=== PATIENT | female | born 1955 | race Hispanic/Latino ===

== ENCOUNTER 2017-01-03 19:13 | Emergency (ER) | payer OTHER ==
[~2017-01-03] VITALS: Ht 149.9 cm; Wt 59.0 kg
[~2017-01-03 19:13] MED LIST: INDOMETHACIN75 M1 PO
[2017-01-03 19:43] VITALS: BP 121/71
--- NOTE | 2017-01-03 20:21 | RADIOLOGY REPORT ---
EXAMINATION: XR ANKLE, RIGHT CLINICAL INFORMATION: Right ankle pain and swelling following a fall. Evaluate for a fracture. COMPARISON: No relevant prior studies are available for comparison. TECHNIQUE: AP, lateral, and mortise views of the right ankle. FINDINGS: No fracture or dislocation. The ankle mortise is well-maintained. Mild degenerative spurring at the dorsal aspect of the talonavicular joint. No osseous erosion. Small tibiotalar joint effusion. No abnormal soft tissue calcification. Prominent lateral soft tissue swelling. IMPRESSION: 1. Prominent lateral soft tissue swelling without an associated fracture. 2. Small tibiotalar joint effusion. 3. Mild degenerative spurring at the dorsal aspect of the talonavicular joint.
--- NOTE | 2017-01-03 20:37 | ED UPPER/LOWER EXTREMITY COMPL ---
History of Present Illness General Chief Complaint: Foot or Ankle Injury Stated Complaint: RT ANKLE PAIN Source: patient Exam Limitations: no limitations Vital Signs & Intake/Output Vital Signs & Intake/Output Vital Signs Date Time Temp Pulse Resp B/P B/P Pulse O2 O2 Flow FiO2 Mean Ox Delivery Rate 01/03 1943 98.6 69 16 121/71 98 Room Air ED Intake and Output 01/04 0000 01/03 1200 Intake Total 120 Output Total Balance 120 Intake, Oral 120 Patient 130 lb Weight Allergies Coded Allergies: Penicillins (Intermediate, RASH 01/03/17) Reconcile Medications Indomethacin 75 MG CAPSULE.ER 1 CAP PO BID PRN PAIN/INFLAMMATION Meloxicam (Mobic) 15 MG TABLET 1 TAB PO DAILY PRN PAIN Triage Note: MECHANICAL FALL DOWN TWO STEPS AT DINNER. TOOK IBUPROFEN 800MG AT 2PM WITH MINIMAL RELIEF. REPORTS PAIN 10/10 WITH MOVEMENT, UNABLE TO BEAR WEIGHT. SIGNIFICANT SWELLING NOTED. +CMS TO AFFECTED TOES. PAIN EQUAL TO MEDIAL AND LATERAL ANKLE. DENIES PAIN TO FOOT. MEDICATED WITH TYLENOL IN TRIAGE Triage Nurses Notes Reviewed? yes Onset: Abrupt Duration: constant Timing: single episode today Severity: severe Severity Numbers: 7 Method of Injury: fall HPI: Patient is a 61-year-old female who presents emergency room stating that while ambulating down steps after eating at a restaurant she lost her balance and twisted her right ankle resulting acute onset of pain and swelling localized to the right ankle. Patient denies any knee pain or foot pain. Ibuprofen was administered prior to being evaluated. Denies any significant history of sprain or fractures to the right ankle. Patient denies any other pain (ANTOINETTE MALDONADO) Past History Travel History Traveled to [place] past 21 day No Medical History Any Pertinent Medical History? see below for history Neurological: NONE EENT: NONE Cardiovascular: NONE Respiratory: asthma, pneumonia Gastrointestinal: NONE Hepatic: NONE Renal: NONE Musculoskeletal: NONE Psychiatric: NONE Endocrine: hypothyroidism Other Medical Hx: Epidural abscess Surgical History Surgical History: LUMBAR EPIDURAL ABSCESS EVACUATION Psychosocial History What is your primary language French Tobacco Use: Refused to answer Family History Hx Contributory? No (ANTOINETTE MALDONADO) Review of Systems Review of Systems Constitutional: Reports: no symptoms. EENTM: Reports: no symptoms. Respiratory: Reports: no symptoms. Cardiovascular: Reports: no symptoms. Gastrointestinal/Abdominal: Reports: no symptoms. Genitourinary: Reports: no symptoms. Musculoskeletal: Reports: see HPI, joint pain, joint swelling. Skin: Reports: no symptoms. Neurological/Psychological: Reports: no symptoms. Hematologic/Endocrine: Reports: no symptoms. Immunological: Reports: no symptoms. All Other Systems: Reviewed and Negative (ANTOINETTE MALDONADO) Physical Exam Physical Exam General Appearance: no apparent distress, alert, comfortable Neurologic/Tendon: normal sensation, normal motor functions, normal tendon functions, responds to pain, no evidence tendon injury, no pulse deficit Skin: intact, normal color, warm/dry Comments: Well-developed well-nourished no apparent distress. HEENT: Atraumatic, extraocular motion intact Neck: Supple, no lymphadenopathy Back: Nontender Respiratory: No respiratory distress Extremities: Right knee nontender full active range of motion normal inspection Right ankle noted bilateral malleoli swelling and point tenderness decreased active range of motion and surrounding ecchymosis skin intact Right foot nontender normal inspection pedal pulse +2 Neuro: Alert and oriented x3 Psych: Mood affect normal, normal memory normal judgment. (ANTOINETTE MALDONADO) Progress Differential Diagnosis: arterial insufficiency, compartment syndrome, contusion, dislocation, DVT, fracture, gout, septic arthritis, sprain, tendon injury Plan of Care: No osseous injury from where patient was point tender. Due to the history of present illness and exam findings or suspicion of right ankle sprain. Eugene wrap and ankle stirrup was applied. PRE AND POST NEUROvascular was intact crutches were advised Diagnostic Imaging: Viewed by Me: Radiology Read. Radiology Impression: no fracture Comments: PATIENT: BETY SAVAGE PRESENT AGE: 61 PATIENT ACCOUNT NO: [id number] : 56 LOCATION: [facility] ORDERING PHYSICIAN: DUSTIN PINA DO (TBS) SERVICE DATE: 01/03/17 EXAM TYPE: RAD - XRY-ANKLE 3 OR MORE VIEWS R EXAMINATION: XR ANKLE, RIGHT CLINICAL INFORMATION: Right ankle pain and swelling following a fall. Evaluate for a fracture. COMPARISON: No relevant prior studies are available for comparison. TECHNIQUE: AP, lateral, and mortise views of the right ankle. FINDINGS: No fracture or dislocation. The ankle mortise is well-maintained. Mild degenerative spurring at the dorsal aspect of the talonavicular joint. No osseous erosion. Small tibiotalar joint effusion. No abnormal soft tissue calcification. Prominent lateral soft tissue swelling. IMPRESSION: 1. Prominent lateral soft tissue swelling without an associated fracture. 2. Small tibiotalar joint effusion. 3. Mild degenerative spurring at the dorsal aspect of the talonavicular joint. DICTATED BY: REINALDO RESENDEZ MD DATE/TIME DICTATED:01/03/172005 GANG HEMSTITCHING MACHINE OPERATOR:CUCA (ANTOINETTE MALDONADO) Departure Departure Disposition: HOME OR SELF CARE Condition: Stable Clinical Impression Primary Impression: Right ankle sprain Referrals: SHEN COLLAZO,PETER FRIEDMAN MD,BUCK (PCP/Family) Additional Instructions: As discussed begin using the crutches UNTIL YOU CAN walk without pain. Begin using the Eugene wrap and the Aircast stirrup for swelling. Begin elevating foot for swelling begin [id number] meloxicam for pain and inflammation. If no better in one week follow-up with layout former Dr. Coffey. If symptoms worsen return to emergency room. Prescription is waiting at [facility] Begin icing 20 minutes every 2 hours Departure Forms: Customer Survey General Discharge Information Prescriptions: Current Visit Scripts Meloxicam (Mobic) 1 TAB PO DAILY PRN PAIN #15 TAB (ANTOINETTE MALDONADO) PA/CHANGE RELEASE MANAGER Co-Sign Statement Statement: ED Attending supervision documentation- [] I saw and evaluated the patient. I have also reviewed all the pertinent lab results and diagnostic results. I agree with the findings and the plan of care as documented in the PA's/CHANGE RELEASE MANAGER's documentation. [x] I have reviewed the ED Record and agree with the PA's/CHANGE RELEASE MANAGER's documentation. [] Additions or exceptions (if any) to the PAs/CHANGE RELEASE MANAGER's note and plan are summarized below: [] (HUNTER CLARK,SANTINO Johnson)
[2017-01-03] MEDS ORDERED: MOBIC15 M1 PO (20:55)
== END 2017-01-03 21:41 ==
LOC: ERH 19:13
DX: S93.401A Sprain of unspecified ligament of right ankle, initial encounter (principal); X50.9XXA Other and unspecified overexertion or strenuous movements or postures, initial encounter; Y93.01 Activity, walking, marching and hiking; Y92.511 Restaurant or cafe as the place of occurrence of the external cause
CPT/HCPCS: 73610-RT

== ENCOUNTER 2017-12-03 12:40 | Emergency (ER) | payer OTHER ==
[~2017-12-03] VITALS: Ht 149.9 cm; Wt 61.2 kg
[~2017-12-03 12:40] MED LIST changes: +MOBIC15 M1 PO
--- NOTE | 2017-12-03 13:11 | ED DYSPNEA/ASTHMA COMPLAINT ---
History of Present Illness General Chief Complaint: General Adult Stated Complaint: PT THINKS SHE HAS BRONCHTIS Source: patient Exam Limitations: no limitations Vital Signs & Intake/Output Vital Signs & Intake/Output Vital Signs Date Time Temp Pulse Resp B/P B/P Pulse O2 O2 Flow FiO2 Mean Ox Delivery Rate 12/03 1503 96.2 72 16 117/61 96 Room Air 12/03 1431 98 12/03 1340 98 Room Air 12/03 1248 98.0 71 18 123/81 97 Room Air Allergies Coded Allergies: Penicillins (Intermediate, RASH 01/03/17) Reconcile Medications Albuterol Sulfate (Proair Hfa) 90 MCG HFA.AER.AD 2 PUF INH Q4-6 PRN PRN SHORTNESS OF BREATH (Reported) Benzonatate 200 MG CAPSULE 1 CAP PO TIDPRN COUGH (Reported) Brompheniramine/Pseudoephed/Dm (Bromfed Dm Cough Syrup) 2 MG-30 MG-10 MG/5 ML SYRUP 5-10 ML PO Q4-6 PRN PRN cough Budesonide/Formoterol Fumarate (Symbicort 160-4.5 Mcg Inhaler) 160 MCG-4.5 MCG/ ACTUATION HFA.AER.AD 2 PUF INH BID BREATHING PROBLEMS (Reported) Fluticasone Furoate (Flonase Sensimist) 27.5 MCG/ACTUATION SPRAY.SUSP UNKNOWN ( Reported) Prednisone 10 MG TABLET 1 TAB PO DAILY STEROID (Reported) Triage Note: RECEIVED 62 YO FEMALE DX WITH BRONCHITIS ONE WEEK AGO AT A WALK IN CLINIC, C/O "I WOULD LIKE A CXR" PT REPORTS SEVERE WORSENING COUGH AND PAIN ALL OVER, BACK, ARMS, BREASTS, NECK. PT REPORTS SOB WITH EXERTION. Triage Nurses Notes Reviewed? yes Onset: Gradual Duration: day(s): Timing: recent history Severity: moderate HPI: 62yo female with hx of asthma, bronchitis presents to ED complaining of cough and congestion x 6 days. Patient also reports chest tightness x 6 days. The patient was seen and evaluated at an urgent care and was prescribed prednisone taper, tessalon pearles, Advair, Proair, Azithromycin. Patient reports worsening symptoms for the past few days. She reports pain in chest, abdomen, back, and arms, worse with cough. Patient saw her primary care doctor yesterday, was informed that her symptoms were likely viral. Patient is worried and is requesting CXR. She denies sick contact, fevers, chills, hemoptysis. (Katina Floyd) Past History Travel History Traveled to [place] past 21 day No Medical History Any Pertinent Medical History? see below for history Neurological: NONE EENT: NONE Cardiovascular: NONE Respiratory: asthma, pneumonia Gastrointestinal: NONE Hepatic: NONE Renal: NONE Musculoskeletal: NONE Psychiatric: NONE Endocrine: hypothyroidism Other Medical Hx: Epidural abscess Surgical History Surgical History: LUMBAR EPIDURAL ABSCESS EVACUATION Psychosocial History What is your primary language Burmese Tobacco Use: Never used Family History Hx Contributory? No (Katina Floyd) Review of Systems Review of Systems Constitutional: Reports: no symptoms. EENTM: Reports: see HPI. Respiratory: Reports: see HPI. Cardiovascular: Reports: see HPI. GI: Reports: no symptoms. Genitourinary: Reports: no symptoms. Musculoskeletal: Reports: see HPI. Skin: Reports: no symptoms. Neurological/Psychological: Reports: no symptoms. Hematologic/Endocrine: Reports: no symptoms. Immunologic/Allergic: Reports: no symptoms. All Other Systems: Reviewed and Negative (Katina Floyd) Physical Exam Physical Exam General Appearance: well developed/nourished, no apparent distress, alert, awake Head: atraumatic, normal appearance Eyes: Bilateral: normal appearance. Ears, Nose, Throat: normal pharynx, hearing grossly normal Neck: normal inspection, supple, full range of motion Respiratory: normal breath sounds, no respiratory distress, lungs clear, bilateral chest tenderness Cardiovascular: regular rate/rhythm, normal peripheral pulses Peripheral Pulses: 2+ radial (R), 2+ radial (L) Gastrointestinal: normal bowel sounds, soft, non-tender, no organomegaly Extremities: normal inspection, normal range of motion Neurologic/Psych: awake, alert, oriented x 3 Skin: intact, normal color, warm/dry Core Measures ACS in differential dx? Yes CVA/TIA Diagnosis No Sepsis Present: No Sepsis Focused Exam Completed? No (Katina Floyd) Progress Differential Diagnosis: asthma, AMI, bronchitis, costochondritis, COPD, musculoskeletal pain, pulmonary embolism, pneumonia Plan of Care: Orders Procedure Date/time Status TROPONIN LEVEL 12/03 1307 Complete COMPREHENSIVE METABOLIC PANEL 12/03 1307 Complete CBC WITHOUT DIFFERENTIAL 12/03 1307 Complete EKG 12/03 1307 Active Laboratory Tests 12/03/17 1351: Anion Gap 12, Estimated GFR > 60, BUN/Creatinine Ratio 30.0 H, Glucose 118 H, Calcium 9.7, Total Bilirubin 0.3, AST 26, ALT 38, Alkaline Phosphatase 65, Troponin I < 0.01, Total Protein 7.7, Albumin 4.9, Globulin 2.8, Albumin/ Globulin Ratio 1.8, CBC w Diff NO MAN DIFF REQ, RBC 4.57, MCV 90.7, MCH 30.6, MCHC 33.8, RDW 13.6, MPV 8.9, Gran % 78.3 H, Lymphocytes % 17.5 L, Monocytes % 3.4, Eosinophils % 0.4, Basophils % 0.4, Absolute Granulocytes 4.7, Absolute Lymphocytes 1.0 L, Absolute Monocytes 0.2, Absolute Eosinophils 0, Absolute Basophils 0 Chest x-ray shows no acute pneumonia. Patient's EKG is in sinus rhythm without acute ischemic changes. Blood work is stable, no leukocytosis, troponin enzyme negative. Patient likely has viral bronchitis. She been on appropriate medications. She was prescribed Bromfed for antihistamine/antitussive and instructed to discontinue Tessalon Perles. Patient informs that her symptoms may persist for 1-2 weeks however [id number] medications can help with her symptoms. Patient was given strict return precautions. Her chest pain is reproducible, atypical, low suspicion for acute cardiac process. The patient agrees with the plan of care. Diagnostic Imaging: Viewed by Me: Radiology Read. Discussed w/RAD: Radiology Read. CXR Impression: PATIENT: BETY SAVAGE PRESENT AGE : 62 PATIENT ACCOUNT NO: [id number] : 56 LOCATION: [facility] ORDERING PHYSICIAN: Katina GARCIA SERVICE DATE: 12/03/17 EXAM TYPE: RAD - XRY-CHEST XRAY, TWO VIEWS EXAMINATION: XR CHEST CLINICAL INFORMATION: Cough, chest pain COMPARISON: None TECHNIQUE: 2 views of the chest were obtained. FINDINGS: No significant abnormality is noted involving the heart, lungs, mediastinum, bony thorax or soft tissues. IMPRESSION: Unremarkable examination. DICTATED BY: Toan Gil MD DATE/TIME DICTATED:12/03/171327 LINE FISHER:CUCA DATE/TIME TRANSCRIBED:05/25/18 / 1328 CONFIDENTIAL, DO NOT COPY WITHOUT APPROPRIATE AUTHORIZATION. <Electronically signed in Other Vendor System> SIGNED BY: Jeffery CLARKToan 12/03/17 6254 Initial ED EKG: sinus rhythm @68bpm, nonspecific ST changes Prior EKG: unchanged (11/05/15) (Katina Floyd) Departure Departure Disposition: HOME OR SELF CARE Condition: Stable Clinical Impression Primary Impression: Bronchitis Secondary Impressions: Cough Referrals: Mundo Zuñiga MD (PCP/Family) Additional Instructions: Continue medications as prescribed by your primary care doctor such as prednisone, inhalers. Discontinue Tessalon Perles if you find these are not alleviating your symptoms. Begin Bromfed syrup for congestion/cough. Increase fluids and rest. Also eat frequent meals throughout the day if tolerated. Return if you have worsening symptoms or concerns such as chest pain, shortness of breath, feeling as though you're going to pass out, fevers not relieved by Tylenol or ibuprofen. Please note that there might be incidental findings in your evaluation that are unrelated to the current emergency department visit. Please notify your primary care doctor about this emergency department visit in order to obtain and review all of the testing performed so that these incidental findings can be monitored as needed. If you had an x-ray performed, please understand that some fractures may not be seen on the initial set of x-rays. If your symptoms persist you might need a repeat set of x-rays to check for such a fracture. If you had a laceration evaluated, please understand that foreign bodies such as glass or wood may not be visible to the naked eye or on plain x-rays. If the wound becomes red, swollen, increasingly more painful or if there is any drainage from the wound, please have it reevaluated by a physician for the possibility of a retained foreign body. If you're unable to follow up as outlined in the discharge instructions please return to the emergency department. Thank you for choosing the [facility] Emergency Department for your care. It was a pleasure to serve you today. Departure Forms: Customer Survey General Discharge Information Prescriptions: Current Visit Scripts Brompheniramine/Pseudoephed/Dm (Bromfed Dm Cough Syrup) 5-10 ML PO Q4-6 PRN PRN cough #120 ML (Katina Floyd) PA/WELFARE ELIGIBILITY WORKER Co-Sign Statement Statement: ED Attending supervision documentation- [] I saw and evaluated the patient. I have also reviewed all the pertinent lab results and diagnostic results. I agree with the findings and the plan of care as documented in the PA's/WELFARE ELIGIBILITY WORKER's documentation. [X] I have reviewed the ED Record and agree with the PA's/WELFARE ELIGIBILITY WORKER's documentation. [] Additions or exceptions (if any) to the PAs/WELFARE ELIGIBILITY WORKER's note and plan are summarized below: [] (Josh CLARK,Alex Nguyen) Critical Care Note Critical Care Note Critical Care Time: non-applicable (Hannah GARCIA,Katina Cam)
--- NOTE | 2017-12-03 13:33 | RADIOLOGY REPORT ---
EXAMINATION: XR CHEST CLINICAL INFORMATION: Cough, chest pain COMPARISON: None TECHNIQUE: 2 views of the chest were obtained. FINDINGS: No significant abnormality is noted involving the heart, lungs, mediastinum, bony thorax or soft tissues. IMPRESSION: Unremarkable examination.
[2017-12-03 14:02] LABS: ABSOLUTE BASOPHIL COUNT 0 /CUMM (0.0-0.2); ABSOLUTE EOSINOPHIL COUNT 0 /CUMM (0.0-0.7); ABSOLUTE GRANULOCYTE CT 4.7 /CUMM (1.4-6.5); ABSOLUTE MONOCYTE COUNT 0.2 /CUMM (0.10-0.60); BASOPHIL % 0.4 % (0.0-2.0); EOSINOPHIL % 0.4 % (0-5); HEMATOCRIT 41.4 % (37-47); MEAN CORPUSCULAR HGB 30.6 PG (27.0-31.0); MEAN CORPUSCULAR HGB CONC 33.8 G/DL (33.0-37.0); MEAN CORPUSCULAR VOLUME 90.7 FL (81.0-99.0); MEAN PLATELET VOLUME 8.9 FL (7.4-10.4); PLATELET COUNT 275 /CUMM (130-400); RBC DISTRIBUTION WIDTH 13.6 % (11.5-14.5); RED BLOOD CELL CT 4.57 /CUMM (4.20-5.40)
[2017-12-03 14:05] LABS: GRANULOCYTE % 78.3 % (42.2-75.2)
[2017-12-03 15:03] VITALS: BP 117/61
[2017-12-03] MEDS ORDERED: SYMBICORT 16010.2 GM INH (15:08)
[2017-12-03] MEDS ORDERED: PROAIR HFA8.5 GM INH (15:09)
[2017-12-03] MEDS ORDERED: FLONASE SENSIM9.9 ML (15:09)
[2017-12-03] MEDS ORDERED: BENZONATATE200 M1 PO (15:09)
[2017-12-03] MEDS ORDERED: PREDNISONE10 M2 PO (15:10)
[2017-12-03] MEDS ORDERED: BROMFED DM COU118 M1 PO (15:21)
== END 2017-12-03 15:29 ==
LOC: ERH 12:40
PROVIDERS: Physician Assistant
DX: J40 Bronchitis, not specified as acute or chronic (principal); R05 Cough; R07.89 Other chest pain
CPT/HCPCS: 71046; 93005; 93010